=== PATIENT | male | born 2000 | race Caucasian/White ===

== ENCOUNTER 2018-08-15 16:42 | Emergency (ER) | payer OTHER ==
[~2018-08-15] VITALS: Ht 172.7 cm; Wt 68.5 kg
[2018-08-15 17:11] VITALS: Ht 172.7 cm; Wt 68.5 kg
[2018-08-15 19:09] VITALS: BP 122/80
== END 2018-08-15 19:09 | disposition home or self-care (01) ==
LOC: ED 16:42
DX: S00.83XA Contusion of other part of head, initial encounter (principal); S20.219A Contusion of unspecified front wall of thorax, initial encounter; S30.1XXA Contusion of abdominal wall, initial encounter; S80.12XA Contusion of left lower leg, initial encounter; S80.11XA Contusion of right lower leg, initial encounter; V89.2XXA Person injured in unspecified motor-vehicle accident, traffic, initial encounter; W22.11XA Striking against or struck by driver side automobile airbag, initial encounter; Y93.89 Activity, other specified; Y92.410 Unspecified street and highway as the place of occurrence of the external cause; Y99.8 Other external cause status

== ENCOUNTER 2018-08-17 20:05 | Emergency (ER) | payer OTHER ==
[~2018-08-17] VITALS: Ht 172.7 cm; Wt 68.9 kg
[2018-08-17 20:08] VITALS: Ht 172.7 cm; Wt 68.9 kg
[2018-08-17 21:30] VITALS: BP 128/54
== END 2018-08-17 21:30 | disposition home or self-care (01) ==
LOC: ED 20:05
DX: S20.221A Contusion of right back wall of thorax, initial encounter (principal); S80.02XA Contusion of left knee, initial encounter; V43.92XA Unspecified car occupant injured in collision with other type car in traffic accident, initial encounter; Y93.89 Activity, other specified; Y92.488 Other paved roadways as the place of occurrence of the external cause; Y99.8 Other external cause status